=== PATIENT | male | born 1945 | race African-American/Black ===

== ENCOUNTER 2017-02-06 15:42 | Emergency (ER) | payer OTHER ==
--- NOTE | ~2017-02-06 | EKG ---
PATIENT: KALE SANTANA UNIT #: [id number] Ventricular Rate: 72 BPM Atrial Rate: 72 BPM P-R Interval: 154 ms QRS Duration: 76 ms Q-T Interval: 370 ms QTC Calculation(Bezet): 405 ms P [place]: 53 degrees Calculated R [place]: 64 degrees Calculated T [place]: 44 degrees Diagnosis Line: Normal sinus rhythm Diagnosis Line: Increased R/S ratio in V1, consider early Diagnosis Line: transition or posterior infarct Diagnosis Line: Borderline ECG Diagnosis Line: No previous ECGs available Diagnosis Line: Confirmed by OSEI KRISHNAMURTHY MD ([id number]) on 02/07/2017 Diagnosis Line: 8:25:36 PM INTERPRETING MD: RAGHU ODONNELL
[2017-02-06 17:34] LABS: BASOPHIL% 0.7 % (0-2.5); EOSINOPHIL# 0.1 X10e3 (0-0.7); EOSINOPHIL% 2.5 % (0.0-7.0); HEMATOCRIT 44.8 % (38.0-50.0); LYMPHOCYTE# 1.2 X10e3 (1.0-3.5); LYMPHOCYTE% 22.9 % (17.0-45.0); MEAN CELL VOLUME 92.5 FL (83-96); MEAN CORPUSCULAR HEMOGLOBIN 30.8 PG (28-34); MEAN CORPUSCULAR HGB CONC 33.4 g/dL (30-36); MONOCYTE# 0.6 X10e3 (0-1.0); NEUTROPHIL# 3.2 X10e3 (1.5-7.1); NEUTROPHIL% 61.9 % (40-75); PLATELET COUNT 222 X10e3 (140-420); RED BLOOD COUNT 4.85 X10e (3.90-5.60); WHITE BLOOD COUNT 5.2 X10e3 (4.0-10.5)
[2017-02-06 17:35] LABS: DIFF IND NO
[2017-02-06 17:56] LABS: ALBUMIN SERUM 3.9 g/dL (3.5-5.0); BILIRUBIN, DIRECT 0.1 mg/dL (0.0-0.2); BILIRUBIN,INDIRECT 0.2 mg/dL (0.0-0.9); BILIRUBIN,TOTAL 0.3 mg/dL (0.2-2.0); BUN/CREATININE RATIO 9.09; CALCIUM SERUM 8.7 mg/dL (8.4-10.2); CREATININE SERUM 1.1 mg/dL (0.6-1.4); GLOM FILT RATE Estimated 67.2 mL/min (>60); POTASSIUM 3.8 mmol/L (3.5-5.1); PROTEIN TOTAL SERUM 7.5 g/dL (6.0-8.3)
[2017-02-06 18:40] LABS: POC - CKMB <1.0 ng/mL (0.0-7.9); POC - TROPONIN <0.05 ng/mL (<=0.05)
[2017-02-06 19:27] LABS: URINE SOURCE CLEAN CATCH
[2017-02-06 19:31] LABS: URINE APPEARANCE CLEAR; URINE BILIRUBIN NEG (NEG); URINE BLOOD NEG (NEG); URINE COLOR YELLOW; URINE GLUCOSE NEG (NEG); URINE KETONE NEG (NEG); URINE LEUKOCYTE ESTERASE NEG (NEG); URINE NITRATE NEG (NEG); URINE PROTEIN NEG (NEG); URINE SPECIFIC GRAVITY 1.003 (1.003-1.035); URINE UROBILINOGEN 0.2 MG/DL (NEG)
[2017-02-06 19:39] LABS: CULTURE INDICATED? NO
== END 2017-02-06 20:15 | disposition home or self-care (01) ==
LOC: CED 15:42
PROVIDERS: Emergency Medicine
DX: R53.1 Weakness (principal); Z88.1 Allergy status to other antibiotic agents
CPT/HCPCS: 36415; 80048; 80076; 81003; 82553; 82947; 84484; 85025; 93005; 96361; 96374; 99285; J1885